=== PATIENT | female | born 1970 | race Two or more races ===

== ENCOUNTER 2019-06-11 06:45 | Day surgery (SDC) | payer OTHER ==
[~2019-06-11 06:45] MED LIST: FLONASE16 GM; MILLIPRED5 MG PO; SINGULAIR 10MG10 MG PO; SYMBICORT 16010.2 GM IH
== END 2019-06-11 17:40 | disposition home or self-care (01) ==
LOC: CIR.AMB 06:45
DX: D24.2 Benign neoplasm of left breast (principal)

== ENCOUNTER 2020-08-11 10:26 | Outpatient (CLI) | payer OTHER | END 2020-08-11 10:51 | disposition home or self-care (01) | LOC: MAMO-SONO 10:26 | PROVIDERS: ATTEND Surgery | DX: N60.11 Diffuse cystic mastopathy of right breast (principal); N60.12 Diffuse cystic mastopathy of left breast ==